=== PATIENT | male | born 1970 | race Caucasian/White ===

== ENCOUNTER 2018-10-08 19:15 | Emergency (ER) | payer OTHER ==
[2018-10-08] MEDS ORDERED: DEXAMETHASONE SOD PHOS INJ 10 MG/1 ML VIAL IM ONE (20:21)
[2018-10-08 21:00] LABS: A TYPE INFLUENZA AG NEGATIVE (NEGATIVE); B INFLUENZA AG NEGATIVE (NEGATIVE)
--- NOTE | 2018-10-08 21:19 | ER Document Report ---
ED Respiratory Problem - General Chief Complaint: Shortness Of Breath Stated Complaint: DIFFICULTY BREATHING Time Seen by Provider: 10/08/18 19:58 Primary Care Provider: CLAUDIA SIMMS MD [Primary Care Provider] - Follow up as needed Mode of Arrival: Ambulatory Information source: Patient Notes: Patient is a 47-year-old male comes emergency room with a 4 to 5-day onset of congestion runny nose and productive cough. Patient states that he has been noticing that he has had an audible wheeze and he has had a productive cough of brownish-green phlegm. Often he gets into coughing fits that he feels like he is going to throw up. He also complains of diffuse body aches and pains. He feels hot and his told him that he felt like he had fever for the last couple of days. Patient takes no medications always been taking some sffo-xum-bdimfry DayQuil and NyQuil to see if he could use the symptoms but has not worked at all. 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 He does state that he is in [id number] diabetic and takes metformin daily although he is currently out and has checked on the status of his order and it was shipped today. Patient states he just feels lousy. TRAVEL OUTSIDE OF THE [place] IN LAST 30 DAYS: No - HPI Patient complains to provider of: Short of breath Onset: Other - 4 days Duration: Continuous, Worse/persistent Initiating Event: Exertion Quality of pain: Achy Severity: Moderate Pain Level: 3 Context: denies: Recent surgery, Smoker Short of Breath: Moderate Cough: Productive Sputum amount: Moderate Sputum color: [place], Green Sputum consistency: Thick Associated symptoms: Congestion, Cough, Fever, Sinus pain/pressure, Sore Throat, Wheezing Similar symptoms previously: No Recently seen / treated by doctor: No - Related Data Allergies/Adverse Reactions: ibuprofen [From Motrin] Allergy (Unknown, Verified 11/24/10 01:12) Shellfish * [Shellfish] Allergy (Unknown, Verified 11/24/10 01:12) Past Medical History - General Information source: Patient - Social History Smoking Status: Never Smoker Chew tobacco use (# tins/day): No Smoking Education Provided: No Frequency of alcohol use: Rare Drug Abuse: None Lives with: Family Family History: Reviewed & Not Pertinent, CAD, DM, Other - parkinsons Patient has suicidal ideation: No Patient has homicidal ideation: No - Past Medical History Cardiac Medical History: Reports: Hx Coronary Artery Disease Denies: Hx Atrial Fibrillation, Hx Congestive Heart Failure, Hx Heart Attack, Hx Hypercholesterolemia, Hx Hypertension, Hx Peripheral Vascular Disease, Hx Heart Murmur Pulmonary Medical History: Denies: Hx Tuberculosis Renal/ Medical History: Denies: Hx Benign Prostatic Hyperplasia, Hx End Stage Renal Disease, Hx Kidney Stones, Hx Peritoneal Dialysis GI Medical History: Reports: Hx Gastroesophageal Reflux Disease. Denies: Hx Crohn's Disease, Hx Hiatal Hernia, Hx Irritable Bowel, Hx Liver Failure, Hx Pancreatitis, Hx Ulcer Musculoskeletal Medical History: Denies Hx Arthritis, Denies Hx Fibromyalgia, Denies Hx Muscular Dystrophy Psychiatric Medical History: Reports: Hx Depression Denies: Hx Bipolar Disorder, Hx Post Traumatic Stress Disorder, Hx Schizophrenia Traumatic Medical History: Reports: Hx Fractures Past Surgical History: Reports: Hx Cholecystectomy - 2003. Denies: Hx Appendectomy, Hx Bowel Surgery, Hx Colostomy, Hx Coronary Artery Bypass Graft, Hx Gastric Bypass Surgery, Hx Herniorrhaphy, Hx Pacemaker, Hx Tonsillectomy - Immunizations Hx Diphtheria, Pertussis, Tetanus Vaccination: Yes - unknown Review of Systems - Review of Systems Constitutional: No symptoms reported EENT: See HPI, Nose congestion, Sinus pressure, Sinus discharge Cardiovascular: No symptoms reported Respiratory: See HPI, Cough, Short of breath, Sputum, Wheezing Gastrointestinal: No symptoms reported Genitourinary: No symptoms reported Male Genitourinary: No symptoms reported Musculoskeletal: No symptoms reported Skin: No symptoms reported Hematologic/Lymphatic: No symptoms reported Neurological/Psychological: No symptoms reported -: Yes All other systems reviewed and negative Physical Exam - Vital signs Vitals: Temp Pulse Resp BP Pulse Ox 99.9 F 110 H 20 150/85 H 96 10/08/18 19:32 10/08/18 19:32 10/08/18 19:32 10/08/18 19:32 10/08/18 19:32 Interpretation: Hypertensive, Tachycardic - Notes Notes: PHYSICAL EXAMINATION: GENERAL patient is well-nourished well-developed overweight 47-year-old male who is in no apparent distress on physical exam this evening. Patient does appear somewhat uncomfortable and does get into an occasional coughing spell on physical exam. HEAD: Atraumatic, normocephalic. EYES: Pupils equal round and reactive to light, extraocular movements intact, sclera anicteric, conjunctiva are normal. ENT: Examination head and upper airway showed nasal mucosa to be erythematous and edematous with rhinorrhea noted and slight yellowish-green in color. Moderately thick also appearing. Bilateral nasal congestion is also noted. Examination of the external canals show some cerumen but no obstruction of the TMs. TMs are bulging with air fluid levels not apparent at this time. Examination of posterior pharynx shows moderate amount of drainage yellowish- green thick consistency. Uvula is midline with erythema but no exudate no encroachment upon the uvula airways patent. NECK: Normal range of motion, supple without lymphadenopathy LUNGS: Auscultation patient's lung shows he has bilateral breath sounds breath sounds are increased throughout there is a faint end expiratory wheeze noted. There is no rhonchi or rales heard at this time. HEART: Patient displays a slightly tachycardic rate and rhythm without murmurs Musculoskeletal: Normal range of motion, no pitting or edema. No cyanosis. NEUROLOGICAL: Normal speech, normal gait. Normal sensory, motor exams PSYCH: Normal mood, normal affect. SKIN: Warm, Dry, normal turgor, no rashes or lesions noted. Course - Re-evaluation Re-evalutation: 10/08/18 22:19 Patient's chest x-ray and flu were negative. This time will send patient home with a steroid taper secondary to his wheezing, I am going to put him on Z-Al for his upper respiratory presentation and fever. And Flonase nasal spray. - Vital Signs Vital signs: Temp Pulse Resp BP Pulse Ox 98.9 F 102 H 20 149/83 H 97 10/08/18 22:39 10/08/18 22:39 10/08/18 22:39 10/08/18 22:39 10/08/18 22:39 Discharge - Discharge Clinical Impression: Asthmatic bronchitis Qualifiers: Asthma severity: moderate Asthma persistence: persistent Asthma complication type: with acute exacerbation Qualified Code(s): J45.41 - Moderate persistent asthma with (acute) exacerbation Sinusitis Qualifiers: Sinusitis location: maxillary Chronicity: acute Recurrence: non-recurrent Qualified Code(s): J01.00 - Acute maxillary sinusitis, unspecified Condition: Fair Disposition: HOME, SELF-CARE Instructions: Bronchitis With Bronchospasm (Wheezing) ([facility]), Sinusitis ([facility]) Additional Instructions: Home and rest. Medication as prescribed. Use nasal saline 3-4 times a day to keep the nose moist and secretions thin. Return to ER if you have any concerns or problems. Prescriptions: Azithromycin [Zithromax 250 mg Tablet] 250 mg PO ASDIR PRN #6 tablet PRN Reason: Fluticasone Propionate [Flonase Nasal [place] 50 Mcg/[place] 16 gm] 2 sprays NASL Q12 #1 inhaler Prednisone 10 mg PO ASDIR #1 tab.ds.pk Forms: Elevated Blood Pressure, Return to Work Referrals: CLAUDIA SIMMS MD [Primary Care Provider] - Follow up as needed
--- NOTE | 2018-10-08 21:39 | RADIOLOGY REPORT (SQ) ---
EXAM DESCRIPTION: XR CHEST 2 VIEWS COMPLETED DATE/TME: 10/08/2018 20:21 CLINICAL HISTORY: 47 years Male cough COMPARISON: None. FINDINGS: The cardiomediastinal silhouette appears unremarkable. No consolidating infiltrates or pleural effusions. No pneumothorax. IMPRESSION: No acute abnormality is identified.
[2018-10-08 22:39] VITALS: BP 149/83
== END 2018-10-08 22:39 | disposition home or self-care (01) ==
LOC: ER 19:15
DX: J45.20 Mild intermittent asthma, uncomplicated (principal); J01.00 Acute maxillary sinusitis, unspecified; R05 Cough; R06.02 Shortness of breath; E11.9 Type 2 diabetes mellitus without complications; T38.3X6A Underdosing of insulin and oral hypoglycemic [antidiabetic] drugs, initial encounter; Z91.128 Patient's intentional underdosing of medication regimen for other reason; Z91.14 Patient's other noncompliance with medication regimen; J02.9 Acute pharyngitis, unspecified; I25.10 Atherosclerotic heart disease of native coronary artery without angina pectoris; Z88.6 Allergy status to analgesic agent; Z91.013 Allergy to seafood; Z95.1 Presence of aortocoronary bypass graft
CPT/HCPCS: 99285; 96372; 87804; 71046; J1100

== ENCOUNTER 2018-12-17 17:04 | Emergency (ER) | payer OTHER ==
--- NOTE | 2018-12-17 20:06 | ER Document Report ---
HPI - HPI Time Seen by Provider: 12/17/18 19:34 Pain Level: 4 Notes: Patient is a 48-year-old male presenting to the emergency department with acute on chronic lumbar back pain. Patient reports that he has had injections in the past of Kenalog which significantly helped with his symptoms. Patient reports he has not had any injections over the last several months and the pain has increased severely. Patient also reports that he used to take oxycodone for his symptoms. Patient denies any new or specific injury but does report over the last few days the pain has increased significantly. He reports radiation down into both buttocks. He denies any saddle anesthesia, urinary retention or bowel or bladder incontinence. - REPRODUCTIVE Reproductive: DENIES: : Past Medical History - General Information source: Patient - Social History Smoking Status: Never Smoker Chew tobacco use (# tins/day): No Frequency of alcohol use: None Drug Abuse: None Family History: Reviewed & Not Pertinent, CAD, DM, Other - parkinsons Patient has suicidal ideation: No Patient has homicidal ideation: No - Past Medical History Cardiac Medical History: Reports: Hx Coronary Artery Disease Denies: Hx Atrial Fibrillation, Hx Congestive Heart Failure, Hx Heart Attack, Hx Hypercholesterolemia, Hx Hypertension, Hx Peripheral Vascular Disease, Hx Heart Murmur Pulmonary Medical History: Denies: Hx Tuberculosis Renal/ Medical History: Denies: Hx Benign Prostatic Hyperplasia, Hx End Stage Renal Disease, Hx Kidney Stones, Hx Peritoneal Dialysis GI Medical History: Reports: Hx Gastroesophageal Reflux Disease. Denies: Hx Crohn's Disease, Hx Hiatal Hernia, Hx Irritable Bowel, Hx Liver Failure, Hx Pancreatitis, Hx Ulcer Musculoskeletal Medical History: Denies Hx Arthritis, Denies Hx Fibromyalgia, Denies Hx Muscular Dystrophy Psychiatric Medical History: Reports: Hx Depression Denies: Hx Bipolar Disorder, Hx Post Traumatic Stress Disorder, Hx Schizophrenia Traumatic Medical History: Reports: Hx Fractures Past Surgical History: Reports: Hx Cholecystectomy - 2003. Denies: Hx Appendectomy, Hx Bowel Surgery, Hx Colostomy, Hx Coronary Artery Bypass Graft, H x Gastric Bypass Surgery, Hx Herniorrhaphy, Hx Pacemaker, Hx Tonsillectomy - Immunizations Hx Diphtheria, Pertussis, Tetanus Vaccination: Yes - unknown Vertical Provider Document - CONSTITUTIONAL Notes: PHYSICAL EXAMINATION: GENERAL: Well-appearing, well-nourished and in no acute distress. HEAD: Atraumatic, normocephalic. EYES: Pupils equal round extraocular movements intact, conjunctiva are normal. ENT: Nares patent NECK: Normal range of motion LUNGS: No respiratory distress Musculoskeletal: Normal range of motion, tenderness to palpation to lumbar paraspinous muscles bilaterally, mild vertebral tenderness, no step-off or deformity. NEUROLOGICAL: Normal speech, slow but steady gait. PSYCH: Normal mood, normal affect. SKIN: Warm, Dry, normal turgor, no rashes or lesions noted. - INFECTION CONTROL TRAVEL OUTSIDE OF THE [place] IN LAST 30 DAYS: No Course - Re-evaluation Re-evalutation: Patient's physical examination is most consistent with acute on chronic back geraldine n as well as musculoskeletal strain. Patient does not have any red flag signs of cauda equina. Patient does have an appointment with his pain management provider on Thursday. Patient was researched in the [place] [employer] system. He has not had any recent narcotic prescriptions other than by his pain management provider which was several months ago which does align with his story of getting the Kenalog injections. I will provide patient with a short course of pain medication to last him until Thursday. Patient was educated regarding our chronic pain policy however since this is an acute on chronic situation again he will be provided with a short course of pain medication for the next 2 days. - Vital Signs Vital signs: Temp Pulse Resp BP Pulse Ox 98.4 F 108 H 16 143/101 H 96 12/17/18 17:10 12/17/18 17:10 12/17/18 17:10 12/17/18 17:10 12/17/18 17:10 Discharge - Discharge Clinical Impression: Back pain Qualifiers: Back pain location: low back pain Chronicity: acute Back pain laterality: bilateral Sciatica presence: with sciatica Sciatica laterality: sciatica laterality unspecified Qualified Code(s): M54.40 - Lumbago with sciatica, unspecified side Neck strain Qualifiers: Encounter type: initial encounter Qualified Code(s): S16.1XXA - Strain of muscle, fascia and tendon at neck level, initial encounter Condition: Stable Disposition: HOME, SELF-CARE Additional Instructions: Please keep the follow-up appointment that you have scheduled with your pain management doctor for Thursday. Return to the emergency department for any new or worsening symptoms to include loss of control of bowel or bladder, urinary retention or numbness or weakness in your legs. Prescriptions: Oxycodone HCl/Acetaminophen [Percocet 5-325 mg Tablet] 1 tab PO Q6H PRN #12 tablet PRN Reason: Referrals: CLAUDIA SIMMS MD [Primary Care Provider] - Follow up as needed
[2018-12-17 20:16] VITALS: BP 149/101
== END 2018-12-17 20:17 | disposition home or self-care (01) ==
LOC: ER 17:04
DX: M54.40 Lumbago with sciatica, unspecified side (principal); S16.1XXA Strain of muscle, fascia and tendon at neck level, initial encounter; X58.XXXA Exposure to other specified factors, initial encounter; G89.29 Other chronic pain; Z90.49 Acquired absence of other specified parts of digestive tract
CPT/HCPCS: 99283

== ENCOUNTER 2020-02-09 18:40 | Emergency (ER) | payer OTHER ==
--- NOTE | 2020-02-09 22:29 | RADIOLOGY REPORT (SQ) ---
EXAM DESCRIPTION: US EXTREMITY VEINS UNILATERAL COMPLETED DATE/TME: 02/09/2020 21:17 CLINICAL HISTORY: 49 years, Male, right leg pain/swelling COMPARISON: None. TECHNIQUE: Transverse and longitudinal sonographic images of the right lower extremity deep venous system LIMITATIONS: None. FINDINGS: No visible areas of thrombus. Normal compression and augmentation throughout. Doppler images are unremarkable. There is a 5 x 2 x 2 cm Goldman's cyst noted. IMPRESSION: Negative for DVT. Goldman's cyst. copyright 2010 [employer]- All Rights Reserved
--- NOTE | 2020-02-09 22:31 | RADIOLOGY REPORT (SQ) ---
EXAM DESCRIPTION: XR KNEE 4 OR MORE VIEWS COMPLETED DATE/TME: 02/09/2020 21:17 CLINICAL HISTORY: 49 years, Male, pain COMPARISON: None. NUMBER OF VIEWS: 4 TECHNIQUE: 4 views right knee LIMITATIONS: None. FINDINGS: Negative for fracture or dislocation. Mild tricompartmental degenerative change. No evidence for joint effusion IMPRESSION: Mild degenerative change. copyright 2010 [employer]- All Rights Reserved
[2020-02-09 23:11] VITALS: BP 123/83
--- NOTE | 2020-02-09 23:12 | ER Document Report ---
HPI - HPI Patient complains to provider of: Right knee pain Time Seen by Provider: 02/09/20 21:10 Pain Level: 4 Context: 49-year-old male past medical history significant of chronic pain to his neck and back currently going through pain management presents to the emergency room complaining of worsening right knee pain for the past week. He denies any trauma or injury. States it started after walking his dog but he does not recall any acute injury. Is worse with going up the stairs and after walking. Patient states that he does now he has a history of degenerative changes to his knee. And may need a knee replacement. Associated Symptoms: None Exacerbated by: Walking Relieved by: Denies Similar symptoms previously: Yes - Degenerative changes, previous meniscal tears Recently seen / treated by doctor: No - ROS Systems Reviewed and Negative: Yes All other systems reviewed and negative - NEURO Neurology: DENIES: Weakness - REPRODUCTIVE Reproductive: DENIES: : - MUSCULOSKELETAL Musculoskeletal: REPORTS: Extremity pain - DERM Skin Color: Normal Skin Problems: None Past Medical History - General Information source: Patient - Social History Smoking Status: Never Smoker Frequency of alcohol use: None Drug Abuse: None Family History: Reviewed & Not Pertinent, CAD, DM, Other - parkinsons Patient has homicidal ideation: No - Past Medical History Cardiac Medical History: Reports: Hx Coronary Artery Disease Denies: Hx Atrial Fibrillation, Hx Congestive Heart Failure, Hx Heart Attack, Hx Hypercholesterolemia, Hx Hypertension, Hx Peripheral Vascular Disease, Hx Heart Murmur Pulmonary Medical History: Denies: Hx Tuberculosis Renal/ Medical History: Denies: Hx Benign Prostatic Hyperplasia, Hx End Stage Renal Disease, Hx Kidney Stones, Hx Peritoneal Dialysis GI Medical History: Reports: Hx Gastroesophageal Reflux Disease. Denies: Hx Crohn's Disease, Hx Hiatal Hernia, Hx Irritable Bowel, Hx Liver Failure, Hx Pancreatitis, Hx Ulcer Musculoskeletal Medical History: Denies Hx Arthritis, Denies Hx Fibromyalgia, Denies Hx Muscular Dystrophy Psychiatric Medical History: Reports: Hx Depression Denies: Hx Bipolar Disorder, Hx Post Traumatic Stress Disorder, Hx Schizophrenia Traumatic Medical History: Reports: Hx Fractures Past Surgical History: Reports: Hx Cholecystectomy - 2003. Denies: Hx Appendectomy, Hx Bowel Surgery, Hx Colostomy, Hx Coronary Artery Bypass Graft, Hx Gastric Bypass Surgery, Hx Herniorrhaphy, Hx Pacemaker, Hx Tonsillectomy - Immunizations Hx Diphtheria, Pertussis, Tetanus Vaccination: Yes - unknown Vertical Provider Document - CONSTITUTIONAL Agree With Documented VS: Yes Exam Limitations: No Limitations General Appearance: Mild Distress - INFECTION CONTROL TRAVEL OUTSIDE OF THE [place] IN LAST 30 DAYS: No - HEENT HEENT: Atraumatic, Normocephalic - NECK Neck: Normal Inspection, Supple, Thyroid Normal - RESPIRATORY Respiratory: Breath Sounds Normal, No Respiratory Distress - CARDIOVASCULAR Cardiovascular: Regular Rate, Regular Rhythm, No Murmur - MUSCULOSKELETAL/EXTREMETIES Musculoskeletal/Extremeties: Tender - Tenderness to palpation over the proximal patella. No ballottement. No obvious deformity noted. Painful range of motion with extension to the right knee. Able to flex without pain. Negative anterior, posterior drawer, positive Mariola's, negative William's. - NEURO Level of Consciousness: Awake, Alert, Appropriate Motor/Sensory: No Motor Deficit, No Sensory Deficit - DERM Integumentary: Warm, Dry Course - Re-evaluation Re-evalutation: 02/09/20 23:10 Reviewed x-ray and Doppler ultrasound results with patient. Patient is ambulatory with mild limping noted to right leg. Counseled to rest, ice, elevate his right knee. Continue with your current home pain medications. Outpatient follow-up with orthopedics as discussed. On-call physician was provided. Patient was given strict return to the emergency room guidelines. Return for any new or worsening symptoms. All questions were answered. Patient verbalized understanding and agrees with plan of care. 02/09/20 23:25 - Vital Signs Vital signs: Temp Pulse Resp BP Pulse Ox 97.9 F 82 18 134/93 H 99 02/09/20 18:57 02/09/20 18:57 02/09/20 18:57 02/09/20 18:57 02/09/20 18:57 - Diagnostic Test Radiology reviewed: Reports reviewed Discharge - Discharge Clinical Impression: Synovial cyst of popliteal space [Goldman], right knee Right knee pain Qualifiers: Chronicity: acute Qualified Code(s): M25.561 - Pain in right knee Right knee DJD Qualifiers: Osteoarthritis type: unspecified Qualified Code(s): M17.11 - Unilateral primary osteoarthritis, right knee Condition: Stable Disposition: HOME, SELF-CARE Instructions: Goldman's Cyst ([facility]), Sprained Knee ([facility]) Additional Instructions: Rest, ice, elevate your right knee. Outpatient follow-up with orthopedics or primary care physician as discussed. Continue with your current home medications. Return to the emergency room for any new or worsening symptoms. Referrals: CLAUDIA SIMMS MD [Primary Care Provider] - Follow up as needed MALLY COLUNGA MD [ACTIVE STAFF] - Follow up as needed
== END 2020-02-09 23:15 | disposition home or self-care (01) ==
LOC: ER 18:40
DX: M17.11 Unilateral primary osteoarthritis, right knee (principal); M71.21 Synovial cyst of popliteal space [Baker], right knee; M25.561 Pain in right knee; M54.2 Cervicalgia; M54.9 Dorsalgia, unspecified; G89.29 Other chronic pain; I25.10 Atherosclerotic heart disease of native coronary artery without angina pectoris
CPT/HCPCS: 93971; 99284